=== PATIENT | female | born 2005 | race Caucasian/White ===

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

== ENCOUNTER 2025-02-17 10:51 | Emergency (ER) | payer OTHER, SELFPAY ==
[2025-02-17 11:00] VITALS: BP 146/88; PULSE 97; RESP 16; TEMP 36.1; O2SAT 100
[2025-02-17] MEDS: ONDANSETRON HCL ODT 4 MG TABLET SUBLINGUAL (11:35)
--- NOTE | 2025-02-17 11:45 | ED_ITS ---
HPI - Nausea/Vomiting/Diarrhea General Chief complaint: Nausea/Vomiting/Diarrhea Stated complaint: nausea Time Seen by Provider: 02/17/25 11:30 Source: patient and RN notes reviewed Mode of arrival: ambulatory Limitations: no limitations History of Present Illness HPI Narrative: 19-year-old female presents Express Care complaining of nausea, vomiting, abdominal pain since this morning. Patient reports generalized abdominal pain. Patient says this happens every month right before her period . Patient reports she smokes marijuana. Patient denies any history of cyclic vomiting. Patient has been unable to keep anything down since she has vomited. Patient denies any fevers, body aches and chills, diarrhea, chest pain, shortness of breath, upper respiratory symptoms, cough, or any other symptoms. Related Data Home Medications ?Medication ?Instructions ?Recorded ?Confirmed ?Last Taken ?Type No Home Medications 01/27/24 02/17/25 U nknown History Allergies Allergy/AdvReac Type Severity Reaction Status Date / Time pollen extracts Allergy Swelling Verified 02/17/25 11:04 Review of Systems Review of Systems: CONSTITUTIONAL: Denies fever, chills, or sweats. EYES: Denies visual changes, redness, or discharge. ENT: Denies rhinorrhea, congestion, sore throat, or otalgia. CARDIOVASCULAR: Denies chest pain, palpitations, or edema. RESPIRATORY: Denies cough or dyspnea. GASTROINTESTINAL: Positive for abdominal pain, nausea, vomiting. Negative for diarrhea, black tarry stools, vomiting blood. GENITOURINARY: Denies dysuria or hematuria. SKIN: Denies rash or itching. MUSCULOSKELETAL: Denies back pain, joint pain, or myalgia. NEUROLOGIC: Denies headache, numbness, or weakness. PSYCHIATRIC: Denies anxiety or depression. All other systems reviewed are negative, except as documented in HPI. PMFSH Comments At the time of my signature, I reviewed and agree with the nursing past medical, surgical, social, and family history. There is no relevant family history pertinent to the patient complaint. Exam Narrative: GENERAL: This is a well-nourished, well-developed adult, in no apparent distress. They are non ill-appearing, nontoxic appearing. HEAD: normocephalic, atraumatic. EYES: Sclera clear/white. Conjunctiva normal. Vision is grossly intact. Extraocular movements intact EARS: External ears normal, Hearing grossly intact. NOSE: External nose normal THROAT: Mucous membranes moist, NECK: Neck supple, CARDIOVASCULAR: Regular rate and rhythm without murmurs, gallops, or rubs. RESPIRATORY: Clear to auscultation. Breath sounds equal bilaterally. No wheezes, rales, or rhonchi. GASTROINTESTINAL: Abdomen soft, right lower quadrant tenderness to palpation nondistended. Bowel sounds are active. No hepato-splenomegaly, or palpable masses. Right lower quadrant guarding. Positive obturator sign and psoas sign. Negative rovsing sign. SKIN: warm, Dry, intact with no suspicious lesions or rash, good texture and turgor. NEURO: awake, alert, and oriented to person, place and time. There were no obvious focal neurologic abnormalities. EXTREMITIES: No joint tenderness, effusion, or edema noted. Course Course Emergency Course: Portions of this record may have been created with voice recognition software Level of Care: Express Care Visit Vital Signs Vital signs: Vital Signs Temperature 97 F L 02/17/25 11:00 Pulse Rate 97 02/17/25 11:00 Respiratory Rate 16 02/17/25 11:00 Blood Pressure 146/88 H 02/17/25 11:00 Pulse Oximetry 100 02/17/25 11:00 Oxygen Delivery Room Air 02/17/25 11:00 Temperature 97 F L 02/17/25 11:00 Pulse Rate 97 02/17/25 11:00 Respiratory Rate 16 02/17/25 11:00 Blood Pressure 146/88 H 02/17/25 11:00 Pulse Oximetry 100 02/17/25 11:00 Oxygen Delivery Room Air 02/17/25 11:00 Reviewed Transfer Transfered to: [facility]) Transportation: Other (Private vehicle) Transfer rationale: Right lower quadrant tenderness, rule out appendicitis, nausea, vomiting, further lab work, advanced imaging, further evaluation management. Patient requires higher level care. Accepting physician: Dr. Wong MDM - Nausea/Vomiting/Diarrhea [facility] Narrative Medical decision making narrative: Patient actively vomiting in room. Patient given Zofran. Patient reports some improvement. Patient's during her right lower quadrant, tender to the right lower quadrant, positive obturator sign and psoas sign. Cannot rule out appendicitis. Given patient's symptoms, it is recommend the patient seek a higher level care and proceed immediately to the emergency department. Patient agreeable to go to [facility] ER. Called over to [facility] ER spoke to Dr. Wong who is aware this patient and accepted patient in transfer. Patient says she will take herself via private vehicle to the hospital. Patient hemodynamically stable to drive herself to the hospital. Patient advised to remain NPO and proceed immediately to the ER. Differential Diagnosis Differential diagnosis: Likely gastroenteritis and other (Cyclic vomiting,, appendicitis) Critical Care Time Critical Care Time Critical Care Time: No Discharge Plan Discharge Clinical Impression: Abdominal pain, right lower quadrant Nausea & vomiting Qualifiers: Vomiting type: unspecified Qualified Code(s): R11.2 - Nausea with vomiting, unspecified Patient Disposition: Acute Care Hospital Condition: Stable Patient Language: Kenyan Prescriptions: No Action No Home Medications Follow-up/Referrals: PHYSICIAN,INSURANCE FOLLOW UP SPECIALIST [Primary Care Provider, Internal Medicine] Time of Disposition: 11:45
== END 2025-02-17 11:58 | disposition short-term general hospital (02) ==
DX: R10.31 Right lower quadrant pain (principal); R11.2 Nausea with vomiting, unspecified
CPT/HCPCS: 99213; A9270; G0463